=== PATIENT | female | born 1940 | race Caucasian/White ===

== ENCOUNTER 2021-02-11 14:32 | Emergency (ER) | payer BC, MEDICARE ==
[2021-02-11 15:44] LABS: BASO % 0.2 % (0.0-1.0); EOS % 0.5 % (0.0-3.0); HEMATOCRIT 36.6 % (36.0-47.0); LYMPH # 0.7 10^3/uL (1.5-5.0); LYMPH % 7.9 % (24.0-44.0); MEAN CORPUSCULAR HEMOGLOBIN 29.9 pg (27.0-33.0); MEAN CORPUSCULAR HGB CONC 32.8 g/dl (32.0-36.5); MONO # 0.5 10^3/uL (0.0-0.8); MONO % 6.3 % (2.0-8.0); NEUTROPHILS # 7.2 10^3/uL (1.5-8.5); NEUTROPHILS % 84.7 % (36.0-66.0); PLATELET COUNT, AUTOMATED 216 10^3/uL (150-450); RED BLOOD COUNT 4.02 10^6/uL (4.00-5.40); WHITE BLOOD COUNT 8.5 10^3/uL (4.0-10.0)
--- NOTE | 2021-02-11 16:08 | REP ---
INDICATION: syncope. COMPARISON: None. TECHNIQUE: AP portable semi-erect FINDINGS: The lung pope are well inflated. CP angles are sharply defined with no gross evidence for an effusion. No lateral pleural thickening, apical scarring or pneumothorax. No dense consolidation, atelectasis or mass. Heart has left ventricular configuration but size may be exaggerated by AP portable semi-erect technique. Visualized bones normal for age. No free air under the diaphragm. IMPRESSION: 1. Left ventricular configuration of the heart that may be exaggerated by AP portable semi-erect technique. No acute infiltrate, effusion or other significant finding. <Electronically signed by Kodi Joya > 02/11/21 [id number]
[2021-02-11 16:21] LABS: CALCIUM LEVEL 8.8 MG/DL (8.8-10.2); CREATININE FOR GFR 1.04 MG/DL (0.55-1.30); GLOMERULAR FILTRATION RATE 54.6 (>39); POTASSIUM SERUM 3.7 MEQ/L (3.5-5.1); THYROID STIMULATING HORMONE 1.47 uIU/ML (0.358-3.740)
--- NOTE | 2021-02-11 16:40 | REP ---
INDICATION: rule out dvt COMPARISON: None. TECHNIQUE: Real time compression and duplex Doppler evaluation of the Left upper extremity deep venous system is performed. FINDINGS: The Left subclavian, jugular, axillary, brachial, basilic and cephalic veins are fully compressible where accessible with transducer pressure, and demonstrate no intraluminal thrombus and normal venous waveforms. There is no evidence of deep venous thrombosis.The Right subclavian vein is fully compressible where accessible with transducer pressure, and demonstrates no intraluminal thrombus and normal venous waveforms. IMPRESSION: No evidence of deep venous thrombosis of the Left upper extremity deep vein system. <Electronically signed by John Tran > 02/11/21 [id number]
--- NOTE | 2021-02-11 17:41 | ECGEPIP ---
[facility] - ED Test Date: 2021-02-11 Pat Name: REGLA FREDERICK Department: Room: - Gender: Female [employer] Worker: : 1940 Requested By: YASMINE Obrien Order Number: [id number] Reading MD: Humberto Brown Measurements Intervals [place] Rate: 68 P: 56 NV: 212 QRS: 23 QRSD: 102 T: 38 QT: 422 QTc: 448 Interpretive Statements Sinus rhythm with 1st degree AV block Nonspecific T wave abnormality Comparison tracing not on file Electronically Signed on 02-11-2021 17:41:41 EDT by Humberto Brown
[2021-02-11 18:54] VITALS: BP 132/81
== END 2021-02-11 18:57 | disposition home or self-care (01) ==
LOC: EDBD 14:32 → M ED 14:32
DX: R55 Syncope and collapse (principal); I10 Essential (primary) hypertension